=== PATIENT | male | born 1970 | race African-American/Black ===

== ENCOUNTER 2019-09-03 06:41 | Emergency (ER) | payer MEDICAID ==
[~2019-09-03] VITALS: Ht 190.5 cm; Wt 91.0 kg
[2019-09-03] MEDS ORDERED: BACITRACIN ZINC OINT UDPKT TOP ONE (08:00)
[2019-09-03 09:37] LABS: CLARITY URINE CLEAR (CLEAR); COLOR URINE YELLOW (YELLOW); KETONES URINE 1+ (NEGATIVE); LEUKOCYTE ESTERASE URINE NEGATIVE (NEGATIVE); NITRITE URINE NEGATIVE (NEGATIVE); OCCULT BLOOD URINE 1+ (NEGATIVE); PROTEIN URINE TRACE (NEGATIVE); SPECIFIC GRAVITY URINE 1.017 (1.005-1.030)
[2019-09-03 10:07] LABS: *AMPHETAMINES SCREEN URINE PRESUMTIVE POSITIVE (NEGATIVE); *BARBITURATES SCREEN URINE NEGATIVE (NEGATIVE); *BENZODIAZEPINES SCREEN URINE NEGATIVE (NEGATIVE); *COCAINE SCREEN URINE NEGATIVE (NEGATIVE)
[2019-09-03 10:08] LABS: CANNABINOID URINE SCREEN PRESUMTIVE POSITIVE (NEGATIVE); METHADONE URINE SCREEN NEGATIVE (NEGATIVE); OPIATES URINE SCREEN NEGATIVE (NEGATIVE); PHENCYCLIDINE URINE SCREEN NEGATIVE (NEGATIVE)
[2019-09-03 10:32] LABS: BASOPHILS % 0.4 % (0.0-2.0); EOSINOPHILS % 0.1 % (0.0-5.0); HEMATOCRIT. 44.7 % (42.0-52.0); HEMOGLOBIN. 14.7 g/dL (14.0-18.0); LYMPHOCYTES % 17.8 % (20.0-50.0); MEAN PLATELET VOLUME 7.3 fl (7.4-10.4); MONOCYTES % 6.7 % (2.0-8.0); PLATELET 223 x1000/uL (130-400); RED BLOOD CELL COUNT 5.26 mill/uL (4.7-6.1); RED CELL DISTRIBUTION WIDTH 13.6 % (11.6-14.6)
[2019-09-03 10:43] LABS: CHLORIDE 106 mEq/L (98-107)
[2019-09-03 10:47] LABS: ETHANOL BLOOD < 10 mg/dL
[2019-09-03] MEDS ORDERED: ACETAMINOPHEN 325MG TABLET PO ONE (13:15)
[2019-09-03] MEDS ORDERED: LORAZEPAM 2MG/ML CPJ IM PRN (18:45)
[2019-09-03] MEDS ORDERED: QUETIAPINE FUMARATE 50MG TABLET PO SCH (20:00)
[2019-09-04] MEDS: QUETIAPINE FUMARATE 50MG TABLET PO SCH ×2 (10:46→22:15)
[2019-09-06 15:29] VITALS: BP 131/70
== END 2019-09-06 16:00 | disposition home or self-care (01) ==
LOC: ER 06:41
DX: S90.812A Abrasion, left foot, initial encounter (principal); F31.9 Bipolar disorder, unspecified; R41.82 Altered mental status, unspecified; F20.0 Paranoid schizophrenia; Z59.0 Homelessness; Z91.19 Patient's noncompliance with other medical treatment and regimen; Z88.8 Allergy status to other drugs, medicaments and biological substances; X58.XXXA Exposure to other specified factors, initial encounter; Y93.89 Activity, other specified; Y92.89 Other specified places as the place of occurrence of the external cause; Y99.8 Other external cause status
CPT/HCPCS: 36415; 80053; 80305; 80320; 81003; 82962; 85025; 99284; 99285; G0480